=== PATIENT | female | born 1970 | race Caucasian/White ===

== ENCOUNTER 2017-04-10 11:28 | Emergency (ER) | payer BC ==
[2017-04-10 11:44] VITALS: TEMP 98.6
[2017-04-10] MEDS ORDERED: IBUPROFEN 600 MG TAB PO ONE (11:52)
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
[2017-04-10 13:48] VITALS: BP 108/68; PULSE 58; RESP 18; O2SAT 99
== END 2017-04-10 13:48 | disposition home or self-care (01) ==
LOC: CED 11:28
DX: S29.9XXA Unspecified injury of thorax, initial encounter (principal); S80.811A Abrasion, right lower leg, initial encounter; V18.0XXA Pedal cycle driver injured in noncollision transport accident in nontraffic accident, initial encounter; Y99.8 Other external cause status; Y93.55 Activity, bike riding
CPT/HCPCS: 71020-PO

== ENCOUNTER → 2017-11-25 | Outpatient (CLI) | payer BC | LOC: FIMAGING 10:09 | PROVIDERS: ATTEND Family Medicine | DX: Z12.31 Encounter for screening mammogram for malignant neoplasm of breast (principal); Z80.3 Family history of malignant neoplasm of breast ==

== ENCOUNTER → 2019-02-20 | Outpatient (CLI) | payer BC | LOC: FIMAGING 14:28 ==